=== PATIENT | female | born 1970 | race Two or more races ===

== ENCOUNTER 2020-05-29 17:28 | Inpatient (IN) | payer OTHER ==
[~2020-05-29] VITALS: Ht 170.2 cm; Wt 78.0 kg
[2020-05-29] MEDS ORDERED: MAGNESIUM200 MG PO (17:50)
[2020-05-29] MEDS ORDERED: SYNTHROID125 MCG PO (17:50)
[2020-05-29] MEDS ORDERED: NASAL MIST126 ML (17:51)
[2020-05-29] MEDS ORDERED: TROKENDI XR25 MG PO (17:51)
== END 2020-06-01 16:05 | disposition home or self-care (01) | DRG 392 ==
LOC: ER 17:28 → MEDI 05-30 10:22
PROVIDERS: ADMIT Internal Medicine; ATTEND Internal Medicine
PROC: BW21ZZZ Computerized Tomography (CT Scan) of Abdomen and Pelvis (ICD-10-PCS; principal; 2020-05-30)
DX: K57.32 Diverticulitis of large intestine without perforation or abscess without bleeding (principal); A09 Infectious gastroenteritis and colitis, unspecified; D72.828 Other elevated white blood cell count; E03.8 Other specified hypothyroidism; Z20.822 Contact with and (suspected) exposure to COVID-19; Z91.013 Allergy to seafood; R10.13 Epigastric pain